=== PATIENT | female | born 1995 | race African-American/Black ===

== ENCOUNTER 2024-05-07 07:35 | Emergency (ER) | payer SELFPAY ==
[~2024-05-07 07:35] MED LIST: EPINEPHrine 1 MG/ML AMP ONE; Etomidate 40 MG (20 mL) VIAL ONE; Rocuronium Bromide 10 MG/ML (10ML VIAL) ONE; Sodium Bicarb 50 mEq/50 ML VIAL ONE
[2024-05-07] MEDS ORDERED: Propofol 1,000 MG/100 ML VIAL IV ONE (08:07)
[2024-05-07 08:13] LABS: #Basophils 0.08 10x3/uL (0.0-0.2); #Eosinphils 0.44 10x3/uL (0.0-0.5); #Monocytes 0.44 10x3/uL (0.0-1.1); #Neutrophils 7.47 10x3/uL (1.5-8.4); %Basophils 0.8 % (0.0-2.0); %Eosinophils 4.2 % (0.0-6.0); %Monocytes 4.2 % (0.0-10.0); %Neutrophils 71.5 % (40.0-75.0); Hematocrit 42.5 % (34.9-44.5); Hemoglobin 13.2 g/dL (12.0-15.5); Mean Corpuscular HGB CONC 31.1 g/dL (32.0-36.0); Mean Corpuscular Volume 86.9 fL (81.6-98.3); Mean Platelet Volume 10.2 fL (7.4-10.4); Platelet Count 272 10x3/uL (150-450); RBC Distribution Width 17.5 % (11.5-14.5); Red Blood Cell (RBC) Count 4.89 10x6/uL (3.90-5.03); White Blood Cell (WBC) Count 10.4 10x3/uL (3.5-10.5)
[2024-05-07] MEDS ORDERED: Furosemide 40 MG (4 mL) VIAL ONE (08:25)
[2024-05-07 08:28] LABS: ALT (SGPT) 15 U/L (8-55); AST (SGOT) 20 U/L (5-34); Albumin 3.8 g/dL (3.5-5.0); Alkaline Phosphatase 89 U/L (40-110); Anion Gap 22 mmol/L (10-20); BUN (Urea Nitrogen) 29 mg/dL (7.0-18.7); Bilirubin, Total 0.7 mg/dL (0.2-1.2); Calc. Creatinine Clearance 0 mL/min (70-130); Calcium 9.4 mg/dL (7.8-10.44); Carbon Dioxide 17 mmol/L (22-29); Chloride 109 mmol/L (98-107); Estimated GFR 27; Globulin 4.1 g/dL (2.4-3.5); Glucose 125 mg/dL (70-105); Potassium 4.1 mmol/L (3.5-5.1); Protein, Total 7.9 g/dL (6.0-8.3); Sodium 144 mmol/L (136-145)
[2024-05-07 08:32] LABS: Troponin I 0.056 ng/mL (< 0.028)
== END 2024-05-07 08:54 | disposition short-term general hospital (02) ==
LOC: CSHERS 07:35
DX: I46.9 Cardiac arrest, cause unspecified (principal)
CPT/HCPCS: 31500; 36415; 36416; 36556; 70450; 71045; 80053; 83880; 84484; 85025; 92950; 96374; J0171; J1940; J2704